=== PATIENT | male | born 1930 | race Caucasian/White ===

== ENCOUNTER 2017-11-02 05:23 | Inpatient (IN) | payer MEDICARE, OTHER ==
[2017-11-02] VITALS (16 sets, daily range): BP systolic 109–154; BP diastolic 54–102
[~2017-11-02] VITALS: Ht 175.3 cm; Wt 67.6 kg
[~2017-11-02 05:23] MED LIST: ATOR10TA87 PO; ESOM40CA PO; FERR1TAB9 PO; FOLI20CA PO; LISI-222 PO; METF-436 PO; [UNRECOGNIZED DRUG - OTHER] PO; [UNRECOGNIZED DRUG - OTHER] PO; calcium; ringers solution, lacted 1,000 ML IV SCH
[2017-11-02] MEDS ORDERED: tranexamic acid inj. 1,000 MG in normal saline 100ml IV soln 90 ML IV ONE (05:30)
[2017-11-02] MEDS ORDERED: famotidine 20mg tablet PO ONE (05:30)
[2017-11-02] MEDS ORDERED: gabapentin 300mg capsule PO ONE (05:30)
[2017-11-02] MEDS ORDERED: Cefazolin 2GM/50ML dext iso,osmotic IVPB IV ONE (05:30)
[2017-11-02] MEDS ORDERED: metoclopramide 5 mg/ml inj IV ONE (05:30)
[2017-11-02] MEDS ORDERED: oxyCODONE SR 10mg (sust. release) tab PO ONE (05:30)
[2017-11-02] MEDS ORDERED: VANCOMYCIN INJ 1000 MG in NORMAL SALINE 250ml IV.SOLN IV ONE (05:30)
[2017-11-02] MEDS ORDERED: acetaminophen 325mg tablet PO ONE (05:30)
[2017-11-02] MEDS ORDERED: METH2.5T PO (06:30)
[2017-11-02] MEDS ORDERED: [UNRECOGNIZED DRUG - OTHER] PO (06:30)
[2017-11-02] MEDS ORDERED: LANS30CA37 PO (06:30)
[2017-11-02] MEDS ORDERED: TAMS0.4C32 PO (06:30)
[2017-11-02] MEDS ORDERED: SAW160CA3 PO (06:30)
[2017-11-02] MEDS ORDERED: DUTA0.5C40 PO (06:30)
[2017-11-02] MEDS ORDERED: PRAM0.253 PO (06:30)
[2017-11-02] MEDS ORDERED: FOLI0.4T2 PO (06:30)
[2017-11-02] MEDS ORDERED: ROPIVAcaine 0.5% (5mg/ml) 30ml vial ONE ×2 (06:51→12:13)
[2017-11-02] MEDS ORDERED: vancomycin 1,000mg inj ONE (06:51)
[2017-11-02] MEDS ORDERED: morphine 10mg/ml inj. ONE (06:51)
[2017-11-02] MEDS ORDERED: ceFAZolin 1000mg inj ONE ×5 (06:51→12:59)
[2017-11-02] MEDS ORDERED: ketorolac trometh. 30mg/ml inj. ONE (06:51)
[2017-11-02] MEDS ORDERED: naloxone 0.4 mg/ml inj ONE ×2 (07:13→07:26)
[2017-11-02] MEDS ORDERED: BUPIVAcaine/PF 7.5mg/ml (0.75%) 10ml vial ONE (07:37)
[2017-11-02] MEDS ORDERED: ringers solution, lacted 1,000 ML IV SCH (10:23)
[2017-11-02] MEDS ORDERED: proCHLORperazine 10 MG/2 ml inj IV PRN (10:25)
[2017-11-02] MEDS ORDERED: ondansetron/PF 4mg/2ml inj IV PRN (10:25)
[2017-11-02] MEDS ORDERED: morphine 4 MG/ML inj SYRINge IV PRN ×2 (10:25)
[2017-11-02] MEDS ORDERED: meperidine/PF 25mg/ml syringe IV PRN ×3 (10:25)
[2017-11-02] MEDS ORDERED: propofol inj 20 ML IV ONE (11:29)
[2017-11-02] MEDS ORDERED: propofol inj 0 ML IV ONE (11:29)
[2017-11-02] MEDS ORDERED: fentaNYL/PF 50MCG/1 ML 2ML syringe ONE ×2 (11:34→12:57)
[2017-11-02] MEDS ORDERED: acetaminophen 325mg tablet PO PRN (13:30)
[2017-11-02] MEDS ORDERED: diphenhydrAMINE 25mg capsule PO PRN ×2 (13:30)
[2017-11-02] MEDS ORDERED: bisacodyl 10mg suppository rectal RC PRN (13:30)
[2017-11-02] MEDS ORDERED: HYDROmorphone 1 mg/ml syringe IV PRN (13:30)
[2017-11-02] MEDS ORDERED: magnesium hydroxide 30ml (MOM) UD suspension PO PRN (13:30)
[2017-11-02] MEDS: acetaminophen 325mg tablet PO SCH ×2 (15:52→20:16)
[2017-11-02] MEDS: oxyCODONE IR 5mg (immed. release) tablet PO PRN ×3 (15:54→21:02)
[2017-11-02] MEDS: potassium cl 20mEq in 1/2 NS 1,000 ML IV SCH (15:58)
[2017-11-02] MEDS: ceFAZolin 1GM/D5W- ADD-VANTAGE 50 ML IV SCH (16:00)
[2017-11-02] MEDS ORDERED: tranexamic acid inj. 700 MG in normal saline 100ml IV soln 100 ML IV ONE (17:00)
[2017-11-02] MEDS ORDERED: vancomycin/NS 1 GM ADD-VANTAGE 250 ML IV SCH (20:00)
[2017-11-02] MEDS: enoxaparin 30mg/0.3ml syringe SQ SCH (20:00)
[2017-11-02] MEDS: gabapentin 300mg capsule PO SCH (20:14)
[2017-11-02] MEDS: sennosides 8.6mg tablet PO SCH (20:16)
[2017-11-02] MEDS ORDERED: dextrose ORAL solution 15 GM/59 ML bottle PO PRN ×2 (21:50)
[2017-11-02] MEDS ORDERED: MESSAGE TO PHARMACY PO ONE (21:50)
[2017-11-02] MEDS ORDERED: glucagon, human recombinant 1mg kit SUBCUT PRN (21:50)
[2017-11-02] MEDS ORDERED: dextrose 50%-water 50ml dispensing syringe IV PRN ×2 (21:50)
[2017-11-03] MEDS: ceFAZolin 1GM/D5W- ADD-VANTAGE 50 ML IV SCH (00:43)
[2017-11-03] MEDS: oxyCODONE IR 5mg (immed. release) tablet PO PRN ×4 (00:52→14:55)
[2017-11-03 02:00] VITALS: BP 119/70
[2017-11-03] MEDS: acetaminophen 325mg tablet PO SCH ×4 (02:00→20:00)
[2017-11-03] MEDS: potassium cl 20mEq in 1/2 NS 1,000 ML IV SCH ×4 (02:30→21:30)
[2017-11-03 06:00] VITALS: BP 114/70
[2017-11-03 07:04] LABS: BASOPHILS % (AUTO) 0.3 % (0-1); EOSINOPHILS # (AUTO) 0.2 X10'3 (0-0.9); EOSINOPHILS % (AUTO) 1.9 % (0-6); HEMATOCRIT 30.1 % (42.0-52.0); HEMOGLOBIN 9.8 g/dl (14.0-17.9); LYMPHOCYTES # (AUTO) 1.6 X10'3 (1.1-4.8); LYMPHOCYTES % (AUTO) 14.1 % (21-51); MEAN CORPUSCULAR HEMOGLOBIN 31.3 PG (27.0-31.0); MEAN CORPUSCULAR HGB CONC 32.5 % (33.0-36.5); MEAN CORPUSCULAR VOLUME 96.2 FL (78-98); MEAN PLATELET VOLUME 8.1 FL (7.4-10.4); MONOCYTES % (AUTO) 18.3 % (2-12); NEUTROPHILS # (AUTO) 7.2 X10'3 (1.8-7.7); NEUTROPHILS % (AUTO) 65.4 % (42-75); PLATELET COUNT 222 X10'3 (140-440); RED BLOOD COUNT 3.13 X10'6 (4.70-6.10); RED CELL DISTRIBUTION WIDTH 17.3 % (11.5-14.5); WHITE BLOOD COUNT 11.1 X10'3 (4.5-11.0)
[2017-11-03 07:12] LABS: ANION GAP 7 (8-16); CHLORIDE 104 MMOL/L (99-107); POTASSIUM 4.2 MMOL/L (3.5-5.1); SODIUM 138 MMOL/L (135-145); TOTAL CARBON DIOXIDE 27.5 MMOL/L (24-32)
[2017-11-03] MEDS: enoxaparin 30mg/0.3ml syringe SQ SCH ×2 (07:22→20:00)
[2017-11-03] MEDS: gabapentin 300mg capsule PO SCH ×3 (07:23→21:21)
[2017-11-03 07:27] LABS: NUCLEATED RED BLOOD CELLS 1 /100WBC (0-0); TOTAL CELLS COUNTED 100
[2017-11-03 07:28] LABS: PLATELET ESTIMATE NORMAL
[2017-11-03 07:32] LABS: ANISOCYTOSIS 1+; HEMOGLOBIN A1C 6.4 % (4.5-6.2)
[2017-11-03] MEDS: insulin Lispro (HumaLOG) vial - multi-dose SQ SCH ×2 (08:24→13:21)
[2017-11-03 10:00] VITALS: BP 117/58
[2017-11-03 14:00] VITALS: BP 124/56
[2017-11-03 18:00] VITALS: BP 123/78
[2017-11-03] MEDS: celeCOXIB 100mg capsule PO SCH (20:00)
[2017-11-03] MEDS: insulin glargine (Lantus) pen - multi-dose SQ SCH (21:00)
[2017-11-03] MEDS: sennosides 8.6mg tablet PO SCH (21:21)
[2017-11-03 22:00] VITALS: BP 146/69
[2017-11-03 22:15] LABS: CREATININE 1.54 MG/DL (0.60-1.10); eGFR 43 ML/MIN
[2017-11-04] MEDS: acetaminophen 325mg tablet PO SCH ×2 (02:00→07:15)
[2017-11-04] MEDS: oxyCODONE IR 5mg (immed. release) tablet PO PRN (05:22)
[2017-11-04] MEDS: potassium cl 20mEq in 1/2 NS 1,000 ML IV SCH (05:30)
[2017-11-04 06:00] VITALS: BP 150/76
[2017-11-04 06:37] LABS: BASOPHILS % (AUTO) 0.3 % (0-1); EOSINOPHILS # (AUTO) 0.4 X10'3 (0-0.9); EOSINOPHILS % (AUTO) 3.2 % (0-6); HEMATOCRIT 31.3 % (42.0-52.0); HEMOGLOBIN 10.3 g/dl (14.0-17.9); LYMPHOCYTES # (AUTO) 1.6 X10'3 (1.1-4.8); LYMPHOCYTES % (AUTO) 13.5 % (21-51); MEAN CORPUSCULAR HEMOGLOBIN 31.3 PG (27.0-31.0); MEAN CORPUSCULAR VOLUME 94.7 FL (78-98); MEAN PLATELET VOLUME 7.8 FL (7.4-10.4); MONOCYTES # (AUTO) 2.3 X10'3 (0-0.9); MONOCYTES % (AUTO) 19.8 % (2-12); NEUTROPHILS # (AUTO) 7.3 X10'3 (1.8-7.7); NEUTROPHILS % (AUTO) 63.2 % (42-75); PLATELET COUNT 240 X10'3 (140-440); RED CELL DISTRIBUTION WIDTH 17.2 % (11.5-14.5); WHITE BLOOD COUNT 11.5 X10'3 (4.5-11.0)
[2017-11-04] MEDS: enoxaparin 30mg/0.3ml syringe SQ SCH ×2 (07:14→20:26)
[2017-11-04] MEDS: celeCOXIB 100mg capsule PO SCH ×2 (07:15→20:26)
[2017-11-04] MEDS: gabapentin 300mg capsule PO SCH ×3 (07:15→20:26)
[2017-11-04] MEDS: insulin Lispro (HumaLOG) vial - multi-dose SQ SCH ×2 (08:39→13:41)
[2017-11-04 09:43] LABS: TOTAL CELLS COUNTED 100
[2017-11-04 09:45] LABS: ANISOCYTOSIS 1+; PLATELET ESTIMATE NORMAL
[2017-11-04 10:00] VITALS: BP 121/57
[2017-11-04] MEDS: folic acid 0.4mg tablet PO SCH (13:06)
[2017-11-04] MEDS: pramipexole 0.25mg tablet PO SCH ×2 (13:07→17:49)
[2017-11-04] MEDS ORDERED: acetaminophen 325mg tablet PO PRN (13:30)
[2017-11-04] MEDS ORDERED: metFORMIN 500mg tablet PO SCH (16:00)
[2017-11-04] MEDS: metFORMIN 500mg tablet PO SCH (17:50)
[2017-11-04 18:00] VITALS: BP 121/73
[2017-11-04] MEDS: calcium carbonate 500mg tablet PO SCH (20:26)
[2017-11-04] MEDS: tamsulosin 0.4mg capsule PO SCH (20:26)
[2017-11-04] MEDS: atorvastatin 10mg tablet PO SCH (20:27)
[2017-11-04] MEDS: sennosides 8.6mg tablet PO SCH (20:27)
[2017-11-04] MEDS: acetaminophen 325mg tablet PO PRN (20:34)
[2017-11-04] MEDS: insulin glargine (Lantus) pen - multi-dose SQ SCH (21:00)
[2017-11-04 22:00] VITALS: BP 137/76
[2017-11-04] MEDS: ondansetron/PF 4mg/2ml inj IV PRN (22:54)
[2017-11-05] MEDS ORDERED: proCHLORperazine 10 MG/2 ml inj IV PRN (03:50)
[2017-11-05] MEDS: normal saline 1000ml 1,000 ML IV SCH ×3 (03:59→19:59)
[2017-11-05 07:32] LABS: BASOPHILS % (AUTO) 0.2 % (0-1); EOSINOPHILS # (AUTO) 0.2 X10'3 (0-0.9); EOSINOPHILS % (AUTO) 1.7 % (0-6); HEMATOCRIT 32.3 % (42.0-52.0); HEMOGLOBIN 10.7 g/dl (14.0-17.9); LYMPHOCYTES # (AUTO) 1.2 X10'3 (1.1-4.8); LYMPHOCYTES % (AUTO) 9.7 % (21-51); MEAN CORPUSCULAR HEMOGLOBIN 31.7 PG (27.0-31.0); MEAN CORPUSCULAR HGB CONC 33.1 % (33.0-36.5); MEAN CORPUSCULAR VOLUME 95.6 FL (78-98); MEAN PLATELET VOLUME 7.9 FL (7.4-10.4); MONOCYTES # (AUTO) 1.5 X10'3 (0-0.9); MONOCYTES % (AUTO) 12.4 % (2-12); NEUTROPHILS # (AUTO) 9.3 X10'3 (1.8-7.7); PLATELET COUNT 305 X10'3 (140-440); RED BLOOD COUNT 3.37 X10'6 (4.70-6.10); RED CELL DISTRIBUTION WIDTH 17.4 % (11.5-14.5); WHITE BLOOD COUNT 12.3 X10'3 (4.5-11.0)
[2017-11-05] MEDS ORDERED: [UNRECOGNIZED DRUG - OTHER] PO SCH (08:00)
[2017-11-05] MEDS: enoxaparin 30mg/0.3ml syringe SQ SCH ×2 (08:50→19:59)
[2017-11-05] MEDS: calcium carbonate 500mg tablet PO SCH ×2 (08:51→19:58)
[2017-11-05] MEDS: ferrous sulfate ER tablet 140 MG TABLET.ER PO SCH (08:51)
[2017-11-05] MEDS: acetaminophen 325mg tablet PO PRN (08:51)
[2017-11-05] MEDS: metFORMIN 500mg tablet PO SCH ×2 (08:52→17:31)
[2017-11-05] MEDS: celeCOXIB 100mg capsule PO SCH ×2 (08:52→19:57)
[2017-11-05] MEDS: pantoprazole 40mg Tablet.DR PO SCH (08:52)
[2017-11-05] MEDS: dutasteride 0.5 MG capsule PO SCH (08:52)
[2017-11-05] MEDS: gabapentin 300mg capsule PO SCH ×3 (08:53→19:58)
[2017-11-05] MEDS: folic acid 0.4mg tablet PO SCH (08:53)
[2017-11-05] MEDS: ondansetron/PF 4mg/2ml inj IV PRN (09:03)
[2017-11-05] MEDS: pramipexole 0.25mg tablet PO SCH ×2 (12:30→17:32)
[2017-11-05 13:09] LABS: ALANINE AMINOTRANSFERASE 11 U/L (12-78); ALBUMIN 2.5 G/DL (3.4-5.0); ALBUMIN/GLOBULIN RATIO 0.7 (1.1-1.5); ALKALINE PHOSPHATASE 62 IU/L (46-116); ANION GAP 8 (8-16); ASPARTATE AMINO TRANSFERASE 20 U/L (10-37); BILIRUBIN,TOTAL 0.9 MG/DL (0.1-1.0); BLOOD UREA NITROGEN 29 MG/DL (7-18); BUN/CREATININE RATIO 16.9 (5.4-32.0); CALCIUM 8.8 MG/DL (8.5-10.1); CHLORIDE 99 MMOL/L (99-107); CREATININE 1.72 MG/DL (0.60-1.10); GLUCOSE 165 MG/DL (70-104); POTASSIUM 4.3 MMOL/L (3.5-5.1); SODIUM 134 MMOL/L (135-145); TOTAL CARBON DIOXIDE 27.4 MMOL/L (24-32); TOTAL PROTEIN 6.1 G/DL (6.4-8.2); eGFR 38 ML/MIN
[2017-11-05 18:00] VITALS: BP 120/57
[2017-11-05] MEDS: sennosides 8.6mg tablet PO SCH (19:57)
[2017-11-05] MEDS: tamsulosin 0.4mg capsule PO SCH (19:58)
[2017-11-05] MEDS: atorvastatin 10mg tablet PO SCH (19:58)
[2017-11-05] MEDS: insulin glargine (Lantus) pen - multi-dose SQ SCH (21:00)
[2017-11-05 22:00] VITALS: BP 116/53
[2017-11-06] MEDS: acetaminophen 325mg tablet PO PRN ×4 (01:49→20:09)
[2017-11-06] MEDS: normal saline 1000ml 1,000 ML IV SCH ×3 (03:21→20:08)
[2017-11-06 05:00] VITALS: BP 117/63
[2017-11-06] MEDS: ferrous sulfate ER tablet 140 MG TABLET.ER PO SCH (07:32)
[2017-11-06] MEDS: metFORMIN 500mg tablet PO SCH ×2 (07:32→17:21)
[2017-11-06] MEDS: gabapentin 300mg capsule PO SCH ×3 (07:32→20:09)
[2017-11-06] MEDS: dutasteride 0.5 MG capsule PO SCH (07:32)
[2017-11-06] MEDS: pantoprazole 40mg Tablet.DR PO SCH (07:32)
[2017-11-06] MEDS: calcium carbonate 500mg tablet PO SCH ×2 (07:32→20:09)
[2017-11-06] MEDS: celeCOXIB 100mg capsule PO SCH ×2 (07:33→20:09)
[2017-11-06] MEDS: enoxaparin 30mg/0.3ml syringe SQ SCH ×2 (07:33→20:09)
[2017-11-06] MEDS: folic acid 0.4mg tablet PO SCH (07:33)
[2017-11-06 12:00] VITALS: BP 124/56
[2017-11-06] MEDS: pramipexole 0.25mg tablet PO SCH ×2 (12:23→17:21)
[2017-11-06 18:00] VITALS: BP 141/66
[2017-11-06] MEDS: atorvastatin 10mg tablet PO SCH (20:08)
[2017-11-06] MEDS: tamsulosin 0.4mg capsule PO SCH (20:09)
[2017-11-06] MEDS: sennosides 8.6mg tablet PO SCH (20:09)
[2017-11-06] MEDS: insulin glargine (Lantus) pen - multi-dose SQ SCH (20:10)
[2017-11-06 22:00] VITALS: BP 139/59
[2017-11-07] MEDS: acetaminophen 325mg tablet PO PRN ×3 (02:47→13:06)
[2017-11-07 05:00] VITALS: BP 150/68
[2017-11-07] MEDS: normal saline 1000ml 1,000 ML IV SCH ×2 (05:22→11:50)
[2017-11-07] MEDS: celeCOXIB 100mg capsule PO SCH (07:15)
[2017-11-07] MEDS: pantoprazole 40mg Tablet.DR PO SCH (07:15)
[2017-11-07] MEDS: ferrous sulfate ER tablet 140 MG TABLET.ER PO SCH (07:15)
[2017-11-07] MEDS: dutasteride 0.5 MG capsule PO SCH (07:15)
[2017-11-07] MEDS: gabapentin 300mg capsule PO SCH ×2 (07:16→13:04)
[2017-11-07] MEDS: enoxaparin 30mg/0.3ml syringe SQ SCH (07:16)
[2017-11-07] MEDS: metFORMIN 500mg tablet PO SCH (07:16)
[2017-11-07] MEDS: folic acid 0.4mg tablet PO SCH (07:16)
[2017-11-07] MEDS: calcium carbonate 500mg tablet PO SCH (07:16)
[2017-11-07 10:00] VITALS: BP 154/70
[2017-11-07] MEDS: pramipexole 0.25mg tablet PO SCH (13:04)
== END 2017-11-07 16:00 | DRG 467 ==
LOC: PAS IN 05:23 → EDSTATUS 07:30 → ORTHO 4S 15:21
PROVIDERS: ADMIT Orthopaedic Surgery; ATTEND Orthopaedic Surgery
PROC: 0SPC0JZ Removal of Synthetic Substitute from Right Knee Joint, Open Approach (ICD-10-PCS; 2017-11-02)
PROC: 0SBC0ZZ Excision of Right Knee Joint, Open Approach (ICD-10-PCS; 2017-11-02)
PROC: 0QSG04Z Reposition Right Tibia with Internal Fixation Device, Open Approach (ICD-10-PCS; 2017-11-02)
PROC: BQ171ZZ Fluoroscopy of Right Knee using Low Osmolar Contrast (ICD-10-PCS; 2017-11-02)
PROC: 3E0T3BZ Introduction of Anesthetic Agent into Peripheral Nerves and Plexi, Percutaneous Approach (ICD-10-PCS; 2017-11-02)
PROC: 0SRC0J9 Replacement of Right Knee Joint with Synthetic Substitute, Cemented, Open Approach (ICD-10-PCS; principal; 2017-11-02 07:22)
DX: T84.032A Mechanical loosening of internal right knee prosthetic joint, initial encounter (principal); M80.061A Age-related osteoporosis with current pathological fracture, right lower leg, initial encounter for fracture; I10 Essential (primary) hypertension; E11.9 Type 2 diabetes mellitus without complications; K21.9 Gastro-esophageal reflux disease without esophagitis; J44.9 Chronic obstructive pulmonary disease, unspecified; N40.0 Benign prostatic hyperplasia without lower urinary tract symptoms; E78.5 Hyperlipidemia, unspecified; Y83.8 Other surgical procedures as the cause of abnormal reaction of the patient, or of later complication, without mention of misadventure at the time of the procedure; Z87.891 Personal history of nicotine dependence
CPT/HCPCS: 36415; 73501; 73560; 73590; 76000; 76001; 80051; 80053; 82565; 82948; 83036; 85025; 87070; 87075; 97110; 97116; 97161; 97530; A4315; A6258; A7000; C1713; C1758; C1776; C9250; J0690; J0780; J1650; J1815; J1885; J2175; J2270; J2310; J2405; J2704; J2765; J2795; J3010; J3370; J3490; J7030; J7120; J8610

== ENCOUNTER 2018-02-08 06:18 | Day surgery (SDC) | payer MEDICARE ==
[2018-02-06 15:33] LABS: CLARITY,URINE SLIGHTLY CLOUDY (Clear); COLOR,URINE STRAW (Yellow); GLUCOSE, URINE NEGATIVE (Neg); KETONES,URINE NEGATIVE (Neg); LEUKOCYTE ESTERASE ,URINE MODERATE (Neg); NITRITES, URINE POSITIVE (Neg); OCCULT BLOOD,URINE NEGATIVE (Neg); PROTEIN,URINE NEGATIVE (Neg); UROBILINOGEN,URINE 0.2 E.U/dL (0.2-1.0)
[2018-02-06 15:36] LABS: BASOPHILS % (AUTO) 0.7 % (0-1); EOSINOPHILS # (AUTO) 0.1 X10'3 (0-0.9); EOSINOPHILS % (AUTO) 2.1 % (0-6); LYMPHOCYTES # (AUTO) 1.3 X10'3 (1.1-4.8); LYMPHOCYTES % (AUTO) 28.7 % (21-51); MEAN CORPUSCULAR HEMOGLOBIN 27.9 PG (27.0-31.0); MEAN CORPUSCULAR HGB CONC 31.6 % (33.0-36.5); MEAN CORPUSCULAR VOLUME 88.1 FL (78-98); MEAN PLATELET VOLUME 7.4 FL (7.4-10.4); MONOCYTES # (AUTO) 0.5 X10'3 (0-0.9); MONOCYTES % (AUTO) 10.8 % (2-12); NEUTROPHILS # (AUTO) 2.6 X10'3 (1.8-7.7); NEUTROPHILS % (AUTO) 57.7 % (42-75); PRE OP HEMATOCRIT 40.3 % (42.0-52.0); PRE OP HEMOGLOBIN 12.8 g/dL (14.0-17.9); PRE OP PLATELET COUNT 334 X10'3 (140-440); RED BLOOD COUNT 4.57 X10'6 (4.70-6.10); RED CELL DISTRIBUTION WIDTH 17.6 % (11.5-14.5)
[2018-02-06 15:39] LABS: UA COLLECTION TYPE VOIDED
[2018-02-06 15:42] LABS: BACTERIA,URINE 4+ /HPF (Neg); MUCUS STRANDS NONE SEEN /LPF (Neg); RBC,URINE 0-2 /HPF (0-2); SQUAMOUS EPITHELIAL CELL,UR NONE SEEN /LPF (FEW)
[2018-02-06 15:45] LABS: ALBUMIN 3.6 G/DL (3.4-5.0); ALBUMIN/GLOBULIN RATIO 0.9 (1.1-1.5); ALKALINE PHOSPHATASE 136 IU/L (46-116); BLOOD UREA NITROGEN 21 MG/DL (7-18); BUN/CREATININE RATIO 19.1 (5.4-32.0); CALCIUM 9.8 MG/DL (8.5-10.1); CHLORIDE 96 MMOL/L (99-107); PRE OP ALT 33 U/L (30-65); PRE OP ANION GAP 7 (8-16); PRE OP AST 23 U/L (10-37); PRE OP BILIRUB, TOTAL 0.5 MG/DL (0.0-1.0); PRE OP GLUCOSE 109 MG/DL (70-104); PRE OP POTASSIUM 3.4 MMOL/L (3.4-5.1); PRE OP SODIUM 133 MMOL/L (135-145); TOTAL CARBON DIOXIDE 30.1 MMOL/L (24-32); TOTAL PROTEIN 7.5 G/DL (6.4-8.2); eGFR 64 ML/MIN
[~2018-02-08] VITALS: Ht 176.5 cm; Wt 70.4 kg
[2018-02-08] VITALS (10 sets, daily range): BP systolic 129–167; BP diastolic 79–97
[~2018-02-08 06:18] MED LIST changes: +DUTA0.5C40 PO; -ESOM40CA PO; +FOLI0.4T2 PO; -FOLI20CA PO; +GLU850T PO; -LISI-222 PO; -METF-436 PO; +METH2.5T PO; +PRAM0.129 PO; +SAW160CA3 PO; +TAMS0.4C32 PO; +[UNRECOGNIZED DRUG - OTHER] PO; -[UNRECOGNIZED DRUG - OTHER] PO; -[UNRECOGNIZED DRUG - OTHER] PO; +cefazolin/dext.iso 2gm/100 ML IV ONE; +famotidine 20mg tablet PO ONE
[2018-02-08] MEDS ORDERED: ringers solution, lacted 1,000 ML IV SCH (08:03)
[2018-02-08] MEDS ORDERED: meperidine/PF 25mg/ml syringe IV PRN ×3 (08:05)
[2018-02-08] MEDS ORDERED: proCHLORperazine 10 MG/2 ml inj IV PRN (08:05)
[2018-02-08] MEDS ORDERED: ondansetron/PF 4mg/2ml inj IV PRN (08:05)
[2018-02-08] MEDS ORDERED: morphine 4 MG/ML inj SYRINge IV PRN ×2 (08:05)
[2018-02-08] MEDS ORDERED: ceFAZolin 1000mg inj ONE (08:07)
[2018-02-08] MEDS ORDERED: BUPIVAcaine/PF 2.5mg/ml (0.25%) 10ml vial ONE (08:07)
[2018-02-08] MEDS ORDERED: sevoflurane 250ml liquid IH ONE (08:42)
[2018-02-08] MEDS ORDERED: glycopyrrolate 0.2mg/ml inj ONE (08:42)
[2018-02-08] MEDS ORDERED: midazolam 2 mg/2 ml injection ONE (08:46)
[2018-02-08] MEDS ORDERED: fentaNYL/PF 50MCG/1 ML 2ML syringe ONE (08:46)
[2018-02-08] MEDS ORDERED: propofol inj 20 ML IV ONE (08:49)
[2018-02-08] MEDS ORDERED: dexamethasone sod phosphate 4mg/ml inj. ONE (09:18)
[2018-02-08] MEDS ORDERED: rocuronium 10mg/ml inj IV ONE (09:18)
[2018-02-08] MEDS ORDERED: neostigmine methylsulfate 1 MG/ML 10ml vial ONE (09:18)
[2018-02-08] MEDS ORDERED: ondansetron/PF 4mg/2ml inj ONE (09:35)
== END 2018-02-08 10:48 | disposition home or self-care (01) ==
LOC: PAS 06:18
PROVIDERS: ATTEND Surgery
DX: K40.90 Unilateral inguinal hernia, without obstruction or gangrene, not specified as recurrent (principal); I10 Essential (primary) hypertension; E11.9 Type 2 diabetes mellitus without complications; N40.0 Benign prostatic hyperplasia without lower urinary tract symptoms; M06.9 Rheumatoid arthritis, unspecified; K21.9 Gastro-esophageal reflux disease without esophagitis; Z87.11 Personal history of peptic ulcer disease; Z79.2 Long term (current) use of antibiotics; Z87.891 Personal history of nicotine dependence; Z96.653 Presence of artificial knee joint, bilateral; Z72.89 Other problems related to lifestyle; Z90.49 Acquired absence of other specified parts of digestive tract; Z86.11 Personal history of tuberculosis; Z79.84 Long term (current) use of oral hypoglycemic drugs; Z79.899 Other long term (current) drug therapy; Z98.890 Other specified postprocedural states; Z80.0 Family history of malignant neoplasm of digestive organs
CPT/HCPCS: 36415; 49650; 80053; 81001; 82948; 85025; 87077; 87088; 87186; A6258; C1781; J0690; J1100; J2175; J2250; J2270; J2405; J2704; J2710; J3010; J3490; A4315; J7120